=== PATIENT | male | born 1945 | race Caucasian/White ===

== ENCOUNTER 2024-06-03 09:38 | Outpatient (CLI) | payer MEDICARE | END 2024-06-03 09:39 | disposition home or self-care (01) | LOC: SCSMRI 09:38 | PROVIDERS: ATTEND Family Medicine | DX: M25.552 Pain in left hip (principal); M96.1 Postlaminectomy syndrome, not elsewhere classified; M16.12 Unilateral primary osteoarthritis, left hip; M48.07 Spinal stenosis, lumbosacral region; M47.815 Spondylosis without myelopathy or radiculopathy, thoracolumbar region; M51.35 Other intervertebral disc degeneration, thoracolumbar region; M47.816 Spondylosis without myelopathy or radiculopathy, lumbar region; M51.36 Other intervertebral disc degeneration, lumbar region; M48.061 Spinal stenosis, lumbar region without neurogenic claudication; Z98.1 Arthrodesis status | CPT/HCPCS: 72158 ==